=== PATIENT | female | born 1930 | race Caucasian/White ===

== ENCOUNTER 2018-12-09 11:20 | Emergency (ER) | payer MEDICARE ==
[2018-12-09] MEDS ORDERED: Fentanyl 100 MCG/2 ML VIAL ONE ×2 (11:47→13:49)
--- NOTE | 2018-12-09 12:18 | RAD ---
LEFT SHOULDER TWO VIEWS: INDICATIONS: Fall. Trauma. FINDINGS: There is a displaced left humeral neck fracture with apex medial angulation and approximately one suleiman f shaft width medial displacement of major distal fracture fragment. IMPRESSION: Displaced and angulated left humeral neck fracture. Transcribed Date/Time: 12/09/2018 12:46 PM
--- NOTE | 2018-12-09 12:21 | RAD ---
LEFT HUMERUS TWO VIEWS: INDICATIONS: Fall with injury, pain. FINDINGS: There is a mildly displaced and slightly angulated left humeral neck fracture, which is also describe d on the concurrent left shoulder radiograph series. IMPRESSION: Left humeral neck fracture with mild angulation and displacement. Transcribed Date/Time: 12/09/2018 12:45 PM
--- NOTE | 2018-12-09 12:36 | RAD ---
PORTABLE AP CHEST: Date: 12/09/18 HISTORY: Fall with left shoulder pain. FINDINGS: There is a fracture involving the neck of the left humerus with distal fracture fragment slightly dis placed medially. Osteopenia is present. Degenerative changes are noted in the spine. 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 Cardiac silhouette is magnified by projection, but does appear mildly e nlarged. The pulmonary vasculature is within normal limits. The lungs are clear. Vascular calcificati ons seen in thoracic aorta. Degenerative changes are noted in the spine. No other interval change. IMPRESSION: 1. Fracture proximal left humerus with mild separation of fracture fragments. 2. Borderline cardiomegaly without overt CHF. POS: OFF
--- NOTE | 2018-12-11 17:20 | EKG ---
Test Reason : Blood Pressure : / mmHG Vent. Rate : 083 BPM Atrial Rate : 083 BPM P-R Int : 000 ms QRS Dur : 094 ms QT Int : 372 ms P-R-T Axes : 068 043 -33 degrees QTc Int : 437 ms Sinus rhythm Nonspecific ST and T wave abnormality Abnormal ECG Confirmed by TAM COX D.O. ([id number]), book editor ROMA BERNARD ([id number]) on 12/11/2018 5:19:53 PM Referred By: Confirmed By:TAM COX D.O.
== END 2018-12-09 14:29 | disposition home or self-care (01) ==
LOC: ERS 11:20
DX: S42.202A Unspecified fracture of upper end of left humerus, initial encounter for closed fracture (principal); E78.5 Hyperlipidemia, unspecified; E78.00 Pure hypercholesterolemia, unspecified; I48.91 Unspecified atrial fibrillation; Z79.1 Long term (current) use of non-steroidal anti-inflammatories (NSAID); Z79.899 Other long term (current) drug therapy; W19.XXXA Unspecified fall, initial encounter
CPT/HCPCS: 71045; 93005; 93010; 96374; 96376; J3010

== ENCOUNTER 2019-09-20 00:29 | Emergency (ER) | payer MEDICARE ==
[2019-09-20 01:45] LABS: #Eosinphils 0.1 thou/uL (0.0-0.7); #Lymphocytes 1.3 thou/uL (1.20-3.40); #Monocytes 0.8 thou/uL (0.11-0.59); #Neutrophils 6.3 thou/uL (1.40-6.50); %Basophils 0.4 % (0.0-1.0); %Eosinophils 1.2 % (0.0-10.0); %Lymphocytes 14.8 % (21.0-51.0); %Monocytes 9.4 % (0.0-10.0); %Neutrophils 74.2 % (42.0-75.0); Hemoglobin 12.5 g/dL (12.0-16.0); Mean Corpuscular HGB CONC 34.4 g/dL (32.0-36.0); Mean Corpuscular Volume 93.2 fL (78.0-98.0); Mean Platelet Volume 7.3 fL (7.4-10.4); Platelet Count 194 thou/uL (130-400); RBC Distribution Width 12.2 % (11.5-14.5); Red Blood Cell (RBC) Count 3.91 mill/uL (4.20-5.40); White Blood Cell (WBC) Count 8.5 thou/uL (4.8-10.8)
[2019-09-20 02:04] LABS: ALT (SGPT) 14 U/L (8-55); AST (SGOT) 20 U/L (5-34); Albumin 4.2 g/dL (3.4-4.8); Alkaline Phosphatase 72 U/L (40-110); Anion Gap 12 mmol/L (10-20); BUN (Urea Nitrogen) 16 mg/dL (9.8-20.1); Bilirubin, Total 0.7 mg/dL (0.2-1.2); Calc. Creatinine Clearance 0 mL/min (70-130); Calcium 9.5 mg/dL (7.8-10.44); Carbon Dioxide 28 mmol/L (23-31); Chloride 100 mmol/L (98-107); Estimated GFR-MDRD 78; Globulin 2.9 g/dL (2.4-3.5); Glucose 129 mg/dL (83-110); Potassium 3.4 mmol/L (3.5-5.1); Protein, Total 7.1 g/dL (6.0-8.3); Sodium 137 mmol/L (136-145)
[2019-09-20] MEDS ORDERED: Acetaminophen 325 MG TAB ONE (02:35)
[2019-09-20 03:31] LABS: Bilirubin Negative (Negative); Blood, Urine Negative (Negative); Clarity Clear (Clear); Glucose, Urine (Dipstick) Normal (Negative); Ketone, Urine Negative (Negative); Leukocyte Negative Leu/uL (Negative); Nitrite Negative (Negative); Protein, Urine (Dipstick) Negative (Neg-Trace); Specific Gravity, Urine 1.013 (1.002-1.036); Urobilinogen Normal mg/dL (Less than 2); pH, Urine 7.5 (5.0-9.0)
--- NOTE | 2019-09-20 07:13 | CT ---
PRELIMINARY REPORT/[facility]/EMERGENCY AFTER HOURS PROCEDURE: EXAM: CT Head Without Intravenous Contrast. CLINICAL HISTORY: Pt is an 89 yo F with pmh of HLD, HTN, and Afib who present for a fall. She states that she was sitti ng on the couch watching television and went to get up to get ready for bed and suddenly felt nauseou s and lightheaded. She says she thinks she was reaching for her walker, but then the next thing she k nows she hit the ground. She thinks she fell on her back but cannot remember. She states that she did not lose consciousness. She said after she fell she vomited 3 times. She says she laid on the ground for 2 hours and has pain in the middle of her back all the way down. TECHNIQUE: Axial computed tomography images of the head/brain without intravenous contrast. COMPARISON: CT\SR - CT BRAIN WO CON - 05/25/2016 01:30 PM CDT FINDINGS: BRAIN: Moderate diffuse bilateral patchy periventricular and subcortical white matter low-density changes ar e present, without associated mass-effect; these are nonspecific, may likely be related to microvascu lar ischemic disease. VENTRICLES: No hydrocephalus. ORBITS: The orbits are unremarkable. SINUSES AND MASTOIDS: Moderate sinus mucosal disease. SOFT TISSUES: No significant facial or scalp soft tissue swelling evident. No radiopaque foreign body is seen. BONES: No acute skull fracture. IMPRESSION: No evidence of acute intracranial hemorrhage. ELECTRONICALLY SIGNED BY: Deven Soares MD Sep 20, 2019 2:14:01 AM CDT This report is intended for review by the ordering physician only, in accordance of law. If you recei ve this report in error, please call [facility] at [phone]. FINAL REPORT EMERGENCY AFTER HOURS CT BRAIN WITHOUT CONTRAST: FINDINGS/IMPRESSION: I agree with the findings and impression given in the preliminary report per [facility] physici an. No evidence of acute intracranial abnormality. POS: SHAUNA[facility]
== END 2019-09-20 07:18 | disposition short-term general hospital (02) ==
LOC: ERS 00:29
DX: M54.9 Dorsalgia, unspecified (principal); E78.5 Hyperlipidemia, unspecified; I10 Essential (primary) hypertension; I48.91 Unspecified atrial fibrillation; Z79.899 Other long term (current) drug therapy; W17.89XA Other fall from one level to another, initial encounter
CPT/HCPCS: 36415; 51701; 70450; 80053; 81003; 85025; 93005

== ENCOUNTER 2020-12-06 20:59 | Emergency (ER) | payer OTHER, MEDICARE ==
[2020-12-06] MEDS ORDERED: Boostrix 0.5 ML (Tdap) VIAL ONE (22:13)
[2020-12-06] MEDS ORDERED: Lidocaine 1% w/Epinephrine 1:100K 20 ML VIAL ONE (22:13)
== END 2020-12-07 00:20 | disposition home or self-care (01) ==
LOC: ERS 20:59
DX: S61.412A Laceration without foreign body of left hand, initial encounter (principal); E78.5 Hyperlipidemia, unspecified; I10 Essential (primary) hypertension; Z79.899 Other long term (current) drug therapy; W01.0XXA Fall on same level from slipping, tripping and stumbling without subsequent striking against object, initial encounter
CPT/HCPCS: 12002; 90471; 90715

== ENCOUNTER 2020-12-14 17:44 | Emergency (ER) | payer MEDICARE ==
[2020-12-14] MEDS ORDERED: HYDROcodone/Acetaminophen 5/325 mg Tablet ONE (19:50)
== END 2020-12-14 20:12 | disposition home or self-care (01) ==
LOC: ERS 17:44
DX: S20.212A Contusion of left front wall of thorax, initial encounter (principal); M54.6 Pain in thoracic spine; E78.5 Hyperlipidemia, unspecified; E78.00 Pure hypercholesterolemia, unspecified; I10 Essential (primary) hypertension; I48.91 Unspecified atrial fibrillation; W19.XXXA Unspecified fall, initial encounter

== ENCOUNTER 2021-02-09 00:08 | Emergency (ER) | payer MEDICARE ==
[2021-02-09 01:36] LABS: #Eosinphils 0.1 thou/uL (0.0-0.7); #Lymphocytes 0.9 thou/uL (1.20-3.40); #Monocytes 0.6 thou/uL (0.11-0.59); #Neutrophils 6.1 thou/uL (1.40-6.50); %Basophils 0.2 % (0.0-1.0); %Eosinophils 1.4 % (0.0-10.0); %Lymphocytes 11.8 % (21.0-51.0); %Monocytes 7.6 % (0.0-10.0); %Neutrophils 79.1 % (42.0-75.0); Mean Corpuscular HGB CONC 34.4 g/dL (32.0-36.0); Mean Corpuscular Hemoglobin 32.5 pg (27.0-31.0); Mean Corpuscular Volume 94.4 fL (78.0-98.0); Mean Platelet Volume 7.1 fL (7.4-10.4); Platelet Count 159 thou/uL (130-400); RBC Distribution Width 12.2 % (11.5-14.5); Red Blood Cell (RBC) Count 3.71 mill/uL (4.20-5.40); White Blood Cell (WBC) Count 7.8 thou/uL (4.8-10.8)
[2021-02-09 01:56] LABS: Bilirubin Negative (Negative); Blood, Urine Negative (Negative); Clarity Clear (Clear); Glucose, Urine (Dipstick) Normal (Negative); Ketone, Urine Negative (Negative); Leukocyte Negative Leu/uL (Negative); Nitrite Negative (Negative); Protein, Urine (Dipstick) Negative (Neg-Trace); Specific Gravity, Urine 1.011 (1.002-1.036); Urobilinogen Normal mg/dL (Less than 2)
[2021-02-09 02:01] LABS: ALT (SGPT) 18 U/L (8-55); AST (SGOT) 26 U/L (5-34); Albumin 4.1 g/dL (3.4-4.8); Alkaline Phosphatase 68 U/L (40-110); BUN (Urea Nitrogen) 18 mg/dL (9.8-20.1); Bilirubin, Total 0.9 mg/dL (0.2-1.2); Calc. Creatinine Clearance 0 mL/min (70-130); Calcium 9.8 mg/dL (7.8-10.44); Carbon Dioxide 25 mmol/L (23-31); Chloride 102 mmol/L (98-107); Globulin 2.6 g/dL (2.4-3.5); Glucose 129 mg/dL (83-110); Potassium 3.7 mmol/L (3.5-5.1); Protein, Total 6.7 g/dL (5.8-8.1); Sodium 136 mmol/L (136-145)
[2021-02-09 02:02] LABS: Anion Gap 13 mmol/L (10-20)
== END 2021-02-09 04:00 | disposition short-term general hospital (02) ==
LOC: ERS 00:08
DX: S09.90XA Unspecified injury of head, initial encounter (principal); R55 Syncope and collapse; R11.0 Nausea; W18.30XA Fall on same level, unspecified, initial encounter
CPT/HCPCS: 36415; 51701; 70450; 71045; 72125; 80053; 81003; 83880; 84484; 85025; 93005